=== PATIENT | male | born 1970 | race Caucasian/White ===

== ENCOUNTER 2021-11-07 20:25 | Inpatient (IN) | payer MEDICAID ==
[~2021-11-07] VITALS: Ht 180.3 cm; Wt 111.6 kg
[2021-11-07 20:29] VITALS: BP 136/86
--- NOTE | 2021-11-07 20:29 | NUR ---
PT AMBULATED TO BED 11.
--- NOTE | 2021-11-07 20:30 | NUR ---
PT AMBULATED TO BED 11 FROM TRIAGE WITH C/O BILATERAL LEG PAIN. PT IS LETHARGIC AND SLOW TO ANSWER QUESTIONS. PMH OF DM AND ACCUCHECK WAS 584 IN TRIAGE. PMHx: DM,HTN, Stroke, Heart Problems
[2021-11-07] MEDS ORDERED: NACL 0.9% 1,000 ML IV ONE (20:50)
--- NOTE | 2021-11-07 20:55 | NUR ---
LAB AND RT AT BEDSIDE
--- NOTE | 2021-11-07 21:15 | NUR ---
Dr. Oviedo examining patient.
[2021-11-07 21:18] LABS: BASOPHILS % (AUTO) 0.3 % (0.0-2.0); EOSINOPHILS # (AUTO) 0.2 K/uL (0-0.4); EOSINOPHILS % (AUTO) 1.1 % (0.0-4.0); HEMATOCRIT 40.6 % (36-52); HEMOGLOBIN 13.5 g/dL (12.0-18.0); LYMPHOCYTES # (AUTO) 0.7 K/uL (2.0-11.5); LYMPHOCYTES % (AUTO) 5.4 % (20.5-51.1); MEAN CORPUSCULAR HEMOGLOBIN 30 pg (27-31); MEAN CORPUSCULAR HGB CONC 33 g/dL (33-37); MEAN CORPUSCULAR VOLUME 88.4 fL (80-94); MONOCYTES # (AUTO) 0.6 K/uL (0.8-1.0); MONOCYTES % (AUTO) 4.6 % (1.7-9.3); NEUTROPHILS # (AUTO) 12.3 K/uL (1.8-7.7); NEUTROPHILS % (AUTO) 88.6 % (42.2-75.2); PLATELET COUNT (AUTO) 259 K/uL (140-450); RED BLOOD CELL COUNT(AUTO) 4.59 MIL/uL (4.20-6.10); RED CELL DISTRIBUTION WIDTH 13.3 % (11.6-13.7); WHITE BLOOD COUNT (AUTO) 13.9 K/uL (4.8-10.8)
[2021-11-07] MEDS ORDERED: CLINDAMYCIN 600 MG in DEXTROSE 5% 50 ML IV ONE (21:25)
--- NOTE | 2021-11-07 21:36 | NUR ---
US AT BEDSIDE
[2021-11-07 21:38] LABS: ACETONE, SERUM NEGATIVE (NEGATIVE)
[2021-11-07 21:41] LABS: LIPASE 128 U/L (73-393)
[2021-11-07] MEDS ORDERED: CLINDAMYCIN 600 MG/4 ML VIAL ONE (21:43)
[2021-11-07 21:51] LABS: ALBUMIN 3.1 g/dL (3.4-5.0); ANION GAP 10.5 (8-16); CARBON DIOXIDE 30.2 mmol/L (21-32); CREATININE 1.5 mg/dL (0.6-1.3); POTASSIUM 3.7 mmol/L (3.5-5.1); TOTAL BILIRUBIN 0.6 mg/dL (0.0-1.0)
[2021-11-07 22:00] LABS: PROTHROMBIN TIME 9.2 secs (10.8-13.4)
--- NOTE | 2021-11-07 22:01 | NUR ---
MAXINE SWAB AND UA OBTAINED AND SENT TO LAB
[2021-11-07 22:17] LABS: APPEARANCE,URINE CLEAR (CLEAR); BILIRUBIN,URINE NEGATIVE (NEGATIVE); BLOOD, URINE 1+ (NEGATIVE); COLOR,URINE YELLOW (YELLOW); LEUKOCYTE ESTERASE ,URINE NEGATIVE (NEGATIVE); NITRITE, URINE NEGATIVE (NEGATIVE); UGLUCOSE 3+ (NEGATIVE)
[2021-11-07 22:28] LABS: BARBITURATE, URINE NEGATIVE ng/ml (NEG <=200); BENZODIAZEPINE, URINE NEGATIVE ng/mL (NEG <=200); COCAINE, URINE NEGATIVE ng/mL (NEG <=300)
[2021-11-07 22:29] LABS: CANNABINOID, URINE POSITIVE ng/mL (NEG <=50); OPIATE, URINE NEGATIVE ng/mL (NEG <=2000); PHENCYCLIDINE SCREEN,URINE NEGATIVE ng/mL (NEG <=25)
[2021-11-07 22:30] LABS: RBC,URINE 0-5 /HPF (0-5); WBC,URINE 0-5 /HPF (0-5)
[2021-11-07] MEDS: NACL 0.9% 1,000 ML IV SCH (23:08)
[2021-11-08] MEDS ORDERED: HYDROcodone/APAP 7.5/325 MG 1 TAB PO PRN (00:40)
[2021-11-08] MEDS ORDERED: POTASSIUM CHLORIDE 10 MEQ TABER PO PRN (00:40)
[2021-11-08] MEDS ORDERED: ONDANSETRON 4 MG/2 ML VIAL IM/IVP PRN (00:40)
[2021-11-08] MEDS ORDERED: ACETAMINOPHEN 325 MG TAB PO PRN (00:40)
[2021-11-08] MEDS ORDERED: ZOLPIDEM 5 MG TAB PO PRN (00:40)
[2021-11-08] MEDS ORDERED: guaiFENesin DM 200/20 MG-10 ML 10 ML UDC PO PRN (00:40)
[2021-11-08] MEDS ORDERED: DEXTROSE 50% 50 ML SYR IVP PRN (00:40)
[2021-11-08] MEDS ORDERED: DOCUSATE SODIUM 100 MG GELCAP PO PRN (00:40)
[2021-11-08] MEDS ORDERED: cefTRIAXone 1,000 MG VIAL ONE (01:13)
[2021-11-08 01:14] LABS: CHOL/HDL RATIO 2.7 (1-4.5); FREE T4 (FREE THYROXINE) 1.1 ng/dL (0.76-1.46); THYROID STIMULATING HORMONE 0.36 uIU/mL (0.34-3.74)
--- NOTE | 2021-11-08 03:50 | NUR ---
unable to obtain med rec information, pt does not recall
--- NOTE | 2021-11-08 05:00 | NUR ---
HAS PULLED OFF ALL LEADS, AND TAKEN GOWN OFF AND IS NOW RESTING WITH EYES CLOSED, RESPONDS TO VERBAL STIMULATION THEN RETURNS TO RESTING WITH EYES CLOSED
--- NOTE | 2021-11-08 07:15 | NUR ---
REPORT RECEIVED FROM RED SANTANA, TRANSFER OF CARE AT THIS TIME, PT IN BED, NO LEADS ON, ASLEEP, VERBALLY RESPONSIVE, IV 18G LAC, 125ML OF NS RUNNING.
[2021-11-08] MEDS: glipiZIDE 10 MG TAB PO SCH (07:22)
[2021-11-08] MEDS: NACL 0.9% 1,000 ML IV SCH ×3 (07:29→23:05)
--- NOTE | 2021-11-08 07:34 | NUR ---
ULTRASOUND AT BEDSIDE
[2021-11-08] MEDS ORDERED: metFORMIN 500 MG TAB PO SCH ×2 (08:00→17:00)
[2021-11-08] MEDS: BLOOD GLUCOSE MONITORING 1 DEV DEV FS SCH ×4 (08:11→21:35)
[2021-11-08] MEDS: metFORMIN 500 MG TAB PO SCH ×2 (08:29→18:00)
[2021-11-08] MEDS: INSULIN LISPRO SLIDING SCALE 100 UNITS/ML VIAL SUBQ PRN ×4 (08:33→22:40)
--- NOTE | 2021-11-08 08:41 | NUR ---
PT OFFERED BREAKFAST, HOB ELEVATED, TOLERATED WELL
[2021-11-08] MEDS: PANTOPRAZOLE 40 MG TABEC PO SCH (09:08)
--- NOTE | 2021-11-08 09:11 | NUR ---
DR LOPEZ, ADMITTING MD AT BEDSIDE EVALUATING PT
--- NOTE | 2021-11-08 10:28 | NUR ---
ultrasound at bedside
--- NOTE | 2021-11-08 12:12 | NUR ---
PT IN BED ASLEEP AT THIS TIME, LUNCH OFFERED AND PLACED AT BEDSIDE, PT STATES THAT HE'S GOING TO EAT LATER
--- NOTE | 2021-11-08 12:16 | NUR ---
PT UPRIGHT IN BED EATING LUNCH
--- NOTE | 2021-11-08 14:21 | NUR ---
PATIENT HAS BEEN SCREENED AND CATEGORIZED MODERATE NUTRITION RISK. PATIENT WILL BE SEEN WITHIN 3-5 DAYS OF ADMISSION. [address]
--- NOTE | 2021-11-08 15:16 | NUR ---
PT IN BED ASLEEP
--- NOTE | 2021-11-08 17:05 | NUR ---
Patient will be admitted to care of DR LOPEZ. Admited to TELEMETRY. Will go to room 105B. Belongings list completed. Report to ALBERT SANTANA.
--- NOTE | 2021-11-08 17:09 | NUR ---
RECEIVED REPORT FROM ED NURSE STEPHEN MERA FOR CONTINUITY OF CARE. PLAN OF CARE DISCUSSED. PT CURRENTLY AWAKE, A/OX4. BREATHING EVEN, REGULAR, AND UNLABORED ON RA. CONTINENT OF THE BOWEL AND BLADDER. BLE SKIN IS RED AND SWOLLEN. +1 PITTING EDEMA NOTED ON BLE. PT IN STABLE CONDITION.
--- NOTE | 2021-11-08 19:30 | NUR ---
ENDORSED PT TO NIGHTSHIFT NURSE DARLENE FOR CONTINUITY OF CARE. PT IN STABLE CONDITION.
[2021-11-09] VITALS: BP 128/59
[2021-11-09 04:00] VITALS: BP 140/80
[2021-11-09 05:48] LABS: BASOPHILS # (AUTO) 0.1 K/uL (0.00-0.22); BASOPHILS % (AUTO) 0.9 % (0.0-2.0); EOSINOPHILS # (AUTO) 0.2 K/uL (0-0.4); EOSINOPHILS % (AUTO) 4.1 % (0.0-4.0); HEMATOCRIT 39.7 % (36-52); HEMOGLOBIN 13.2 g/dL (12.0-18.0); LYMPHOCYTES # (AUTO) 1.4 K/uL (2.0-11.5); LYMPHOCYTES % (AUTO) 22.9 % (20.5-51.1); MEAN CORPUSCULAR HEMOGLOBIN 30 pg (27-31); MEAN CORPUSCULAR HGB CONC 33 g/dL (33-37); MEAN CORPUSCULAR VOLUME 90.1 fL (80-94); MONOCYTES # (AUTO) 0.6 K/uL (0.8-1.0); MONOCYTES % (AUTO) 9.3 % (1.7-9.3); NEUTROPHILS # (AUTO) 3.8 K/uL (1.8-7.7); NEUTROPHILS % (AUTO) 62.8 % (42.2-75.2); PLATELET COUNT (AUTO) 232 K/uL (140-450); RED CELL DISTRIBUTION WIDTH 13.5 % (11.6-13.7)
[2021-11-09 06:58] LABS: CARBON DIOXIDE 27.5 mmol/L (21-32); CREATININE 0.8 mg/dL (0.6-1.3); POTASSIUM 3.5 mmol/L (3.5-5.1)
[2021-11-09] MEDS: NACL 0.9% 1,000 ML IV SCH ×3 (07:05→23:05)
[2021-11-09] MEDS: glipiZIDE 10 MG TAB PO SCH (07:07)
--- NOTE | 2021-11-09 07:30 | NUR ---
SBAR report received from night RN, all cares assumed. Pt resting in bed with eyes closed. Bed in low, locked position, call light within reach.
[2021-11-09] MEDS: BLOOD GLUCOSE MONITORING 1 DEV DEV FS SCH ×4 (07:57→20:29)
[2021-11-09 08:00] VITALS: BP 147/86
[2021-11-09 08:07] LABS: T4 (THYROXINE) 6.5 ug/dL (4.5-12.0)
[2021-11-09] MEDS: PANTOPRAZOLE 40 MG TABEC PO SCH (08:32)
[2021-11-09] MEDS: metFORMIN 500 MG TAB PO SCH ×2 (08:32→17:56)
[2021-11-09] MEDS: INSULIN LISPRO SLIDING SCALE 100 UNITS/ML VIAL SUBQ PRN ×2 (11:55→20:33)
[2021-11-09 12:00] VITALS: BP 148/87
[2021-11-09 16:00] VITALS: BP 132/90
--- NOTE | 2021-11-09 19:40 | NUR ---
SBAR REPORT GIVEN TO MARLIN SANTANA, ALL CARES ENDORSED.
--- NOTE | 2021-11-09 19:50 | NUR ---
RECEIVED REPORT FROM AM NURSE FOR CONTINUITY OF CARE. PT IS STABLE IN BED. CAN AMBULATE TO BATHROOM IS CONTINENT. DENIES PAIN OR ACUTE DISTRESS. RR EVEN AND UNLABORED WITH EQUAL CHEST RISE. GI INTACT PT'S SKIN IS INTACT.ALL SAFETY MEASURES IN PLACE. HS MEDS GIVEN WN=791 COVERED WITH 2 UNITS HUMALOG INSULIN. BED LOW AND LOCKED FOR SAFETY. WILL CONTINUE TO MONITOR.
[2021-11-09 20:00] VITALS: BP 167/94
[2021-11-10] VITALS: BP 167/94
[2021-11-10 04:00] VITALS: BP 147/83
[2021-11-10] MEDS: BLOOD GLUCOSE MONITORING 1 DEV DEV FS SCH ×2 (06:19→11:30)
[2021-11-10 06:34] LABS: ANION GAP 10.9 (8-16); CREATININE 0.7 mg/dL (0.6-1.3); POTASSIUM 3.9 mmol/L (3.5-5.1)
[2021-11-10] MEDS: glipiZIDE 10 MG TAB PO SCH (06:36)
[2021-11-10 06:37] LABS: BASOPHILS # (AUTO) 0.1 K/uL (0.00-0.22); BASOPHILS % (AUTO) 1.4 % (0.0-2.0); EOSINOPHILS # (AUTO) 0.3 K/uL (0-0.4); EOSINOPHILS % (AUTO) 5.4 % (0.0-4.0); HEMATOCRIT 39.8 % (36-52); HEMOGLOBIN 13.2 g/dL (12.0-18.0); LYMPHOCYTES # (AUTO) 1.4 K/uL (2.0-11.5); LYMPHOCYTES % (AUTO) 30.5 % (20.5-51.1); MEAN CORPUSCULAR HEMOGLOBIN 30 pg (27-31); MEAN CORPUSCULAR HGB CONC 33 g/dL (33-37); MEAN CORPUSCULAR VOLUME 89.5 fL (80-94); MONOCYTES # (AUTO) 0.4 K/uL (0.8-1.0); MONOCYTES % (AUTO) 8.1 % (1.7-9.3); NEUTROPHILS # (AUTO) 2.5 K/uL (1.8-7.7); NEUTROPHILS % (AUTO) 54.6 % (42.2-75.2); PLATELET COUNT (AUTO) 244 K/uL (140-450); RED BLOOD CELL COUNT(AUTO) 4.45 MIL/uL (4.20-6.10); RED CELL DISTRIBUTION WIDTH 13.3 % (11.6-13.7); WHITE BLOOD COUNT (AUTO) 4.7 K/uL (4.8-10.8)
[2021-11-10] MEDS: INSULIN LISPRO SLIDING SCALE 100 UNITS/ML VIAL SUBQ PRN (06:38)
[2021-11-10] MEDS: NACL 0.9% 1,000 ML IV SCH (07:05)
[2021-11-10] MEDS ORDERED: GLIP10TE PO (07:37)
[2021-11-10] MEDS ORDERED: CEPH-588 PO (07:37)
[2021-11-10] MEDS ORDERED: METF-1253 PO (07:37)
--- NOTE | 2021-11-10 07:45 | NUR ---
ENDORSED REPORT TO AM NURSE FOR CONTINUITY OF CARE. PT IS STABLE ALL CARES ENDORSED. ALL NEEDS MET THROUGHOUT THE SHIFT.
--- NOTE | 2021-11-10 07:46 | NUR ---
RECEIVED PT FROM NIGHT RN, PT IS ALERT, AWAKE AND ORIENTED, ON ROOM AIR, IV LINE NOTED ON THE LAC G. 20 ON SA,LINE LOCK, SAFETY NAND FALL PRECAUTION ENFORCED, NO SIGN OF DISTRESS NOTED AND WILL CONTINUE TO MONITOR PT.
[2021-11-10 08:00] VITALS: BP 149/83
[2021-11-10] MEDS: PANTOPRAZOLE 40 MG TABEC PO SCH (09:42)
[2021-11-10] MEDS: metFORMIN 500 MG TAB PO SCH (09:43)
--- NOTE | 2021-11-10 09:43 | NUR ---
PT WAS GIVEN THE SCHEDULED AM MEDICATIONS NOW, TOLERATED AND WILL CONTINUE TO MONITOR PT.
--- NOTE | 2021-11-10 11:52 | NUR ---
DISCHARGED PT TO HOME ACCOMPANIED BY GIRLFRIEND, DISCHARGE TEACHINGS AND INSTRUCTIONS WERE GIVEN TO PT AND PT VERBALIZED UNDERSTANDING, IV LINE REMOVED AND PT IS STABLE AT THIS TIME.
== END 2021-11-10 12:27 | disposition home or self-care (01) | DRG 720 ==
LOC: MED 20:25 → MTU 23:05
PROVIDERS: ADMIT Family Medicine; ATTEND Family Medicine
DX: A41.9 Sepsis, unspecified organism (principal); N17.0 Acute kidney failure with tubular necrosis; E11.00 Type 2 diabetes mellitus with hyperosmolarity without nonketotic hyperglycemic-hyperosmolar coma (NKHHC); G92.9 Unspecified toxic encephalopathy; E44.1 Mild protein-calorie malnutrition; L03.115 Cellulitis of right lower limb; L03.90 Cellulitis, unspecified; E11.40 Type 2 diabetes mellitus with diabetic neuropathy, unspecified; E87.1 Hypo-osmolality and hyponatremia; E78.2 Mixed hyperlipidemia; Z20.822 Contact with and (suspected) exposure to COVID-19; F15.10 Other stimulant abuse, uncomplicated; I10 Essential (primary) hypertension; L03.116 Cellulitis of left lower limb; E11.51 Type 2 diabetes mellitus with diabetic peripheral angiopathy without gangrene; I25.2 Old myocardial infarction; Z88.0 Allergy status to penicillin; Z95.5 Presence of coronary angioplasty implant and graft; Z86.73 Personal history of transient ischemic attack (TIA), and cerebral infarction without residual deficits; Z68.34 Body mass index [BMI] 34.0-34.9, adult
CPT/HCPCS: 36415; 36600; 71045; 76770; 80048; 80053; 80305; 81001; 82009; 82150; 82550; 82553; 82803; 82948; 83036; 83605; 83690; 83735; 83880; 84100; 84300; 84436; 84439; 84443; 84479; 84484; 85025; 85610; 85730; 87040; 87081; 87086; 93005; 93925; 93970; 96361; 96365; 96367; 99291; G0482; J0696; J1815; J3490; J7060; Q0092

== ENCOUNTER 2022-08-22 09:09 | Inpatient (IN) | payer MEDICAID ==
[~2022-08-22] VITALS: Ht 180.3 cm; Wt 44.9 kg
[2022-08-22] MEDS: BLOOD GLUCOSE MONITORING 1 DEV DEV FS SCH ×2 (06:00→20:35)
[~2022-08-22 09:09] MED LIST: CEPH-588 PO; GLIP10TE PO; METF-1253 PO
[2022-08-22 09:10] VITALS: BP 135/82
--- NOTE | 2022-08-22 09:31 | NUR ---
51 Y/O MALE BIBA FROM [place]. PER PT, HE WAS DRIVING AND HAD A NEAR SYNCOPAL EPISODE WITH CHEST PAIN. STATES DIZZINESS EN ROUTE, DENIES ANY LOC. PER EMS, PT IN CAR A/OX4, VERBALLY RESPONSIVE. GIVEN ASA CHEW BY EMS WITH RESOLUTION OF CP. STATES CONTINUED SLIGHT DIZZINESS. DENIES SOB,CP, ABD PAIN, NVD, RESPIRATIONS EVEN AND UNLABORED, IN GOWN AND ON MIRROR MAKER. PMH: DM2, [place] 3 YEARS AGO, HTN ALLERGY: PENICILLIN
[2022-08-22] MEDS ORDERED: ASPIRIN 81 MG TAB.CHEW PO ONE (11:00)
[2022-08-22] MEDS ORDERED: NACL 0.9% 1,000 ML IV ONE (11:00)
[2022-08-22] MEDS ORDERED: FAMOTIDINE 20 MG/2 ML VIAL IVP ONE (11:00)
[2022-08-22 11:14] LABS: BASOPHILS % (AUTO) 0.6 % (0.0-2.0); EOSINOPHILS # (AUTO) 0.3 K/uL (0-0.4); EOSINOPHILS % (AUTO) 5.1 % (0.0-4.0); HEMATOCRIT 45.3 % (36-52); HEMOGLOBIN 14.8 g/dL (12.0-18.0); LYMPHOCYTES # (AUTO) 1.6 K/uL (2.0-11.5); LYMPHOCYTES % (AUTO) 26.1 % (20.5-51.1); MEAN CORPUSCULAR HEMOGLOBIN 28 pg (27-31); MEAN CORPUSCULAR HGB CONC 33 g/dL (33-37); MEAN CORPUSCULAR VOLUME 86.2 fL (80-94); MONOCYTES # (AUTO) 0.5 K/uL (0.8-1.0); MONOCYTES % (AUTO) 8.7 % (1.7-9.3); NEUTROPHILS # (AUTO) 3.7 K/uL (1.8-7.7); NEUTROPHILS % (AUTO) 59.5 % (42.2-75.2); PLATELET COUNT (AUTO) 256 K/uL (140-450); RED BLOOD CELL COUNT(AUTO) 5.26 MIL/uL (4.20-6.10); RED CELL DISTRIBUTION WIDTH 14.9 % (11.6-13.7); WHITE BLOOD COUNT (AUTO) 6.2 K/uL (4.8-10.8)
[2022-08-22 11:32] LABS: LIPASE 267 U/L (73-393)
[2022-08-22 11:48] LABS: ALBUMIN 2.4 g/dL (3.4-5.0); ANION GAP 10.1 (8-16); CARBON DIOXIDE 28.1 mmol/L (21-32); CREATININE 1.1 mg/dL (0.6-1.3); POTASSIUM 5.2 mmol/L (3.5-5.1); TOTAL BILIRUBIN 0.4 mg/dL (0.0-1.0)
--- NOTE | 2022-08-22 13:15 | NUR ---
SPOKE TO DAUGHTER TIMOTHY ON THE PHONE, INFORMED OF PT STATUS AND ADMISSION, WITH MED LIST
[2022-08-22] MEDS ORDERED: GABA600T12 PO (13:20)
[2022-08-22] MEDS ORDERED: FAMO40TA12 PO (13:20)
[2022-08-22] MEDS ORDERED: ATOR40TA40 PO (13:20)
[2022-08-22] MEDS ORDERED: FURO40TA9 PO (13:20)
[2022-08-22] MEDS ORDERED: CARV3.122 PO (13:20)
[2022-08-22] MEDS ORDERED: GLIP10TA12 PO (13:20)
[2022-08-22] MEDS ORDERED: SACU1TAB PO (13:20)
[2022-08-22] MEDS ORDERED: NITROGLYCERIN 0.4 MG TAB SL PRN (14:00)
[2022-08-22] MEDS ORDERED: guaiFENesin DM 200/20 MG-10 ML 10 ML UDC PO PRN (14:00)
[2022-08-22] MEDS ORDERED: ZOLPIDEM 5 MG TAB PO PRN (14:00)
[2022-08-22] MEDS ORDERED: DOCUSATE SODIUM 100 MG GELCAP PO PRN (14:00)
[2022-08-22] MEDS: carvediloL 3.125 MG TAB PO SCH ×2 (14:00→20:37)
[2022-08-22] MEDS ORDERED: MORPHINE SULFATE 2 MG/ML SYR IVP PRN (14:00)
[2022-08-22] MEDS ORDERED: ONDANSETRON 4 MG/2 ML VIAL IM/IVP PRN (14:00)
[2022-08-22] MEDS ORDERED: HYDROcodone/APAP 7.5/325 MG 1 TAB PO PRN (14:00)
[2022-08-22] MEDS ORDERED: POTASSIUM CHLORIDE 10 MEQ TABER PO PRN (14:00)
[2022-08-22] MEDS ORDERED: NACL 0.9% 1,000 ML IV SCH (14:00)
[2022-08-22] MEDS ORDERED: DEXTROSE 50% 50 ML SYR IVP PRN (14:00)
[2022-08-22] MEDS ORDERED: ACETAMINOPHEN 325 MG TAB PO PRN (14:00)
[2022-08-22 14:37] LABS: MAGNESIUM 1.8 mg/dL (1.8-2.4)
[2022-08-22 15:14] LABS: CHOL/HDL RATIO 2.3 (1-4.5); FREE T4 (FREE THYROXINE) 0.89 ng/dL (0.76-1.46); PHOSPHORUS 4.1 mg/dL (2.5-4.9); THYROID STIMULATING HORMONE 1.25 uIU/mL (0.34-3.74)
[2022-08-22 15:14] LABS: PROTHROMBIN TIME 10.8 secs (10.8-13.4)
--- NOTE | 2022-08-22 15:58 | NUR ---
ECHO AT BEDSIDE
--- NOTE | 2022-08-22 16:20 | NUR ---
AMBULATED TO BATHROOM WITH STEADY GAIT
--- NOTE | 2022-08-22 16:30 | NUR ---
Patient will be admitted to care of DR HERIBERTO LOPEZ. Admited to TELEMETRY. Will go to room 120B. Belongings list completed. Report to ALBERTO ESTHER.
[2022-08-22] MEDS ORDERED: GABAPENTIN PO SCH (17:00)
--- NOTE | 2022-08-22 17:00 | NUR ---
RECEIVED PATIENT FROM ED NURSE. PATIENT WAS AMBULATORY AND WAS ABLE TO WALK TO BED WITH BALANCED GAIT. ASSESSENT AND PLAN OF CARE ESTABLISHED.
[2022-08-22] MEDS: GABAPENTIN 300 MG CAP PO SCH (17:19)
[2022-08-22] MEDS: metFORMIN 500 MG TAB PO SCH (17:19)
--- NOTE | 2022-08-22 19:20 | NUR ---
ENDORSED TO PM NURSE FOR CONTINUATION OF CARE.
[2022-08-22 20:00] VITALS: BP 155/85
--- NOTE | 2022-08-22 20:15 | NUR ---
RECEIVED PT IN STABLE CONDITION.NO C/O CP.IVF INFUSING WELL.CALL LIGHT IN REACH.FAMILY AT BEDSIDE.HR IS SR W/BBB.
[2022-08-22] MEDS: glipiZIDE 10 MG TAB PO SCH (20:38)
[2022-08-22] MEDS ORDERED: NON-FORMULARY ITEM (Metformin HCl (Metformin Hcl) 1 TAB) PO SCH (21:00)
[2022-08-22] MEDS ORDERED: INSULIN LISPRO 100 UNITS/ML VIAL SUBQ SCH (21:10)
[2022-08-22] MEDS: INSULIN LISPRO SLIDING SCALE 100 UNITS/ML VIAL SUBQ PRN (21:35)
--- NOTE | 2022-08-22 22:00 | NUR ---
LW=362.COVERED W/ 13 UNITS INSULIN HUMALOG.
[2022-08-23] VITALS: BP 145/80
--- NOTE | 2022-08-23 02:32 | NUR ---
SLEEPING.NO S/S OF ANY DISTRESS NOTED. HR IS SR W/BBB.
[2022-08-23 04:00] VITALS: BP 135/78
[2022-08-23 05:36] LABS: BASOPHILS # (AUTO) 0.1 K/uL (0.00-0.22); BASOPHILS % (AUTO) 1.9 % (0.0-2.0); EOSINOPHILS # (AUTO) 0.3 K/uL (0-0.4); EOSINOPHILS % (AUTO) 4.8 % (0.0-4.0); HEMATOCRIT 43.4 % (36-52); LYMPHOCYTES # (AUTO) 1.8 K/uL (2.0-11.5); MEAN CORPUSCULAR HEMOGLOBIN 28 pg (27-31); MEAN CORPUSCULAR HGB CONC 32 g/dL (33-37); MEAN CORPUSCULAR VOLUME 86.8 fL (80-94); MONOCYTES # (AUTO) 0.6 K/uL (0.8-1.0); MONOCYTES % (AUTO) 8.5 % (1.7-9.3); NEUTROPHILS # (AUTO) 3.8 K/uL (1.8-7.7); NEUTROPHILS % (AUTO) 57.8 % (42.2-75.2); PLATELET COUNT (AUTO) 244 K/uL (140-450); RED CELL DISTRIBUTION WIDTH 15.2 % (11.6-13.7); WHITE BLOOD COUNT (AUTO) 6.6 K/uL (4.8-10.8)
--- NOTE | 2022-08-23 06:22 | NUR ---
SLEPT WELL.SQ=076.WILL COVER. HR IS SR W/BBB.NO C/O CP.
[2022-08-23 06:25] LABS: ANION GAP 5.6 (8-16); CREATININE 1.2 mg/dL (0.6-1.3); POTASSIUM 4.6 mmol/L (3.5-5.1)
[2022-08-23] MEDS: INSULIN LISPRO SLIDING SCALE 100 UNITS/ML VIAL SUBQ PRN ×4 (06:28→20:16)
--- NOTE | 2022-08-23 07:24 | NUR ---
REPORT GIVEN TO FELTON RN .PT'S CONDITION IS STABLE.
[2022-08-23] MEDS: BLOOD GLUCOSE MONITORING 1 DEV DEV FS SCH ×4 (07:30→20:12)
[2022-08-23 08:00] VITALS: BP 145/86
--- NOTE | 2022-08-23 08:00 | NUR ---
pt A/Ox4,vss,sinus rhythm hr 80's per swine extension field specialist,no c/o pain or discomfort needs attended,call light & personal items within pt reach,safety maintained here to make round and updated of pt condition, discontinue IVF per dr douglas.
[2022-08-23] MEDS ORDERED: NON-FORMULARY ITEM (Atorvastatin Calcium 1 TAB) PO SCH (09:00)
[2022-08-23] MEDS: lisinopriL 5 MG TAB PO SCH (09:24)
[2022-08-23] MEDS: PANTOPRAZOLE 40 MG TABEC PO SCH (09:24)
[2022-08-23] MEDS: ECOTRIN 81 MG TABEC PO SCH (09:24)
[2022-08-23] MEDS: GABAPENTIN 300 MG CAP PO SCH ×3 (09:24→18:28)
[2022-08-23] MEDS: glipiZIDE 10 MG TAB PO SCH ×2 (09:24→20:21)
[2022-08-23] MEDS: FUROSEMIDE 40 MG TAB PO SCH (09:25)
[2022-08-23] MEDS: ATORVASTATIN 20 MG TAB PO SCH (09:25)
[2022-08-23] MEDS: carvediloL 3.125 MG TAB PO SCH ×2 (09:25→20:20)
[2022-08-23] MEDS: metFORMIN 500 MG TAB PO SCH ×2 (09:34→18:28)
[2022-08-23 12:00] VITALS: BP 141/92
--- NOTE | 2022-08-23 12:00 | NUR ---
vss,blood sugar 228 mg/dl,give 4 units humulog as per sliding scale order hourly rounds made,safety maintained.
[2022-08-23 16:00] VITALS: BP 149/93
--- NOTE | 2022-08-23 19:10 | NUR ---
RECEIVED PATIENT LYING ON THE BED, PATIENT IS AWAKE, ALERT AND ORIENTED, DENIES PAIN, DENIES SOB, FAMILY AT BEDSIDE. IV SITE ON LEFT HAND G20, PATENT AND INTACT. CALL LIGHT WITHIN REACH.
[2022-08-23 20:00] VITALS: BP 140/69
--- NOTE | 2022-08-23 20:21 | NUR ---
SCHEDULED MEDICATIONS GIVEN ORDERED. BLOOD SUGAR 228 MG/DL, 4 UNITS INSULIN GIVEN PER SLIDING SCALE. ALL SAFETY MEASURES IN PLACE.
[2022-08-24] VITALS: BP 144/80
--- NOTE | 2022-08-24 00:04 | NUR ---
VITALS TAKEN T 97.3, P 92, BP 144/80, RESP 18, O2 SATS 96% ON ROOM AIR. PATIENT DENIES PAIN, IN NO ACUTE DISTRESS. CALL LIGHT IS WITHIN REACH.
--- NOTE | 2022-08-24 03:00 | NUR ---
URINE COLLECTED, SENT TO LAB FOR U/A.
[2022-08-24 04:00] VITALS: BP 146/89
--- NOTE | 2022-08-24 04:00 | NUR ---
PATIENT DENIES CHEST PAIN, NO SIGNS OF DISTRESS NOTED. VITALS TAKEN. ALL SAFETY MEASURES IN PLACE.
[2022-08-24 04:33] LABS: APPEARANCE,URINE CLEAR (CLEAR); BILIRUBIN,URINE NEGATIVE (NEGATIVE); BLOOD, URINE 1+ (NEGATIVE); COLOR,URINE YELLOW (YELLOW); LEUKOCYTE ESTERASE ,URINE 1+ (NEGATIVE); NITRITE, URINE NEGATIVE (NEGATIVE); PH,URINE 5.5 (5.0-9.0); UGLUCOSE 2+ (NEGATIVE)
[2022-08-24 04:55] LABS: BARBITURATE, URINE NEGATIVE ng/ml (NEG <=200); BENZODIAZEPINE, URINE NEGATIVE ng/mL (NEG <=200); CANNABINOID, URINE NEGATIVE ng/mL (NEG <=50); COCAINE, URINE NEGATIVE ng/mL (NEG <=300); OPIATE, URINE NEGATIVE ng/mL (NEG <=2000); PHENCYCLIDINE SCREEN,URINE NEGATIVE ng/mL (NEG <=25)
[2022-08-24 04:57] LABS: RBC,URINE 0-5 /HPF (0-5)
[2022-08-24] MEDS: BLOOD GLUCOSE MONITORING 1 DEV DEV FS SCH ×2 (06:30→11:25)
--- NOTE | 2022-08-24 06:30 | NUR ---
BLOOD SUGAR 220 MG/DL, GIVEN 4 UNITS HUMALOG PER SLIDING SCALE. PATIENT DENIES CHEST PAIN, NO SIGNS OF DISTRESS NOTED. CALL LIGHT WITHIN REACH.
[2022-08-24] MEDS: INSULIN LISPRO SLIDING SCALE 100 UNITS/ML VIAL SUBQ PRN ×2 (06:31→11:30)
[2022-08-24 06:34] LABS: BASOPHILS # (AUTO) 0.1 K/uL (0.00-0.22); BASOPHILS % (AUTO) 1.2 % (0.0-2.0); EOSINOPHILS # (AUTO) 0.2 K/uL (0-0.4); EOSINOPHILS % (AUTO) 3.1 % (0.0-4.0); HEMATOCRIT 45.2 % (36-52); HEMOGLOBIN 14.8 g/dL (12.0-18.0); LYMPHOCYTES # (AUTO) 1.6 K/uL (2.0-11.5); LYMPHOCYTES % (AUTO) 23.7 % (20.5-51.1); MEAN CORPUSCULAR HEMOGLOBIN 28 pg (27-31); MEAN CORPUSCULAR HGB CONC 33 g/dL (33-37); MEAN CORPUSCULAR VOLUME 86.3 fL (80-94); MONOCYTES # (AUTO) 0.5 K/uL (0.8-1.0); MONOCYTES % (AUTO) 7.5 % (1.7-9.3); NEUTROPHILS # (AUTO) 4.5 K/uL (1.8-7.7); NEUTROPHILS % (AUTO) 64.5 % (42.2-75.2); PLATELET COUNT (AUTO) 260 K/uL (140-450); RED BLOOD CELL COUNT(AUTO) 5.24 MIL/uL (4.20-6.10); RED CELL DISTRIBUTION WIDTH 14.9 % (11.6-13.7); WHITE BLOOD COUNT (AUTO) 6.9 K/uL (4.8-10.8)
[2022-08-24 06:39] LABS: ANION GAP 9.5 (8-16); CREATININE 1.2 mg/dL (0.6-1.3); POTASSIUM 4.5 mmol/L (3.5-5.1)
--- NOTE | 2022-08-24 07:02 | NUR ---
PATIENT IS IN STABLE CONDITION. WILL ENDORSE TO DAY NURSE FOR CONTINUITY OF CARE.
[2022-08-24 08:00] VITALS: BP 143/80
[2022-08-24 08:06] LABS: T3 UPTAKE 30 % (24-39); T4 (THYROXINE) 6.3 ug/dL (4.5-12.0)
[2022-08-24] MEDS: glipiZIDE 10 MG TAB PO SCH (08:35)
[2022-08-24] MEDS: FUROSEMIDE 40 MG TAB PO SCH (08:35)
[2022-08-24] MEDS: ECOTRIN 81 MG TABEC PO SCH (08:35)
[2022-08-24] MEDS: PANTOPRAZOLE 40 MG TABEC PO SCH (08:36)
[2022-08-24] MEDS: lisinopriL 5 MG TAB PO SCH (08:36)
[2022-08-24] MEDS: metFORMIN 500 MG TAB PO SCH (08:36)
[2022-08-24] MEDS: carvediloL 3.125 MG TAB PO SCH (08:37)
[2022-08-24] MEDS: GABAPENTIN 300 MG CAP PO SCH ×2 (08:37→13:27)
[2022-08-24] MEDS: ATORVASTATIN 20 MG TAB PO SCH (08:37)
--- NOTE | 2022-08-24 09:25 | NUR ---
PATIENT HAS BEEN SCREENED AND CATEGORIZED HIGH NUTRITION RISK. PATIENT WILL BE SEEN WITHIN 1-2 DAYS OF ADMISSION. 08/22/22-08/24/[address]
[2022-08-24 12:00] VITALS: BP 127/82
[2022-08-24] MEDS ORDERED: ASPI-1856 PO (12:26)
[2022-08-24] MEDS ORDERED: ATOR20TA40 PO (12:26)
--- NOTE | 2022-08-24 14:13 | NUR ---
08/24/22 RD INITIAL ASSESSMENT COMPLETED. PLEASE REFER TO NUTRITION ASSESSMENT UNDER CARE ACTIVITY FOR ESTIMATED NUTRITIONAL NEEDS. 1. CONTINUE CARDIAC DIET TOLERATED 2. MONITOR PO INTAKE 3. RD TO FOLLOW-UP 3-5 DAYS, MODERATE RISK NANY MANZO RD
--- NOTE | 2022-08-24 14:45 | NUR ---
D/C HOME PER DR SIDDIQI.AND CLEARED BY PRICE ACCURACY SUPERVISOR ,D/C IV D/C [place],D/C INSTRUCTION GIVEN AND EXPLAINED TO PT AND HIS FAMILY.AMBULATORY AND LEAVING WITH FAMILY CONDITION STABLE UPON D/C.
== END 2022-08-24 14:45 | disposition home or self-care (01) | DRG 198 ==
LOC: MED 09:09 → MTU 13:45
PROVIDERS: ADMIT Family Medicine; ATTEND Family Medicine
DX: R07.89 Other chest pain (principal); I25.10 Atherosclerotic heart disease of native coronary artery without angina pectoris; E44.0 Moderate protein-calorie malnutrition; I11.0 Hypertensive heart disease with heart failure; I50.9 Heart failure, unspecified; E11.9 Type 2 diabetes mellitus without complications; E78.5 Hyperlipidemia, unspecified; Z20.822 Contact with and (suspected) exposure to COVID-19; I45.10 Unspecified right bundle-branch block; Z79.899 Other long term (current) drug therapy; Z88.0 Allergy status to penicillin; Z79.2 Long term (current) use of antibiotics; I25.2 Old myocardial infarction; Z95.5 Presence of coronary angioplasty implant and graft
CPT/HCPCS: 36415; 71045; 80048; 80053; 80305; 81001; 82150; 82948; 83036; 83690; 83735; 83880; 84100; 84436; 84439; 84443; 84479; 84484; 85025; 85610; 85730; 87086; 93005; 96361; 96374; 99285; J1815; J3490; Q0092